=== PATIENT | female | born 1945 | race Asian ===

== ENCOUNTER 2022-11-02 10:55 | Emergency (ER) | payer MEDICARE ==
[~2022-11-02] VITALS: Ht 142.2 cm; Wt 50.0 kg
[~2022-11-02 10:55] MED LIST: AMLO10TA PO; ASPI-1265 PO; ATOR20TA66 PO; CALC200T PO; LISI40TA13 PO; MULT-1085 PO; OMEG-79 PO
[2022-11-02 11:39] LABS: CLARITY,URINE CLEAR (Clear); COLOR,URINE YELLOW (Yellow); GLUCOSE, URINE NEGATIVE (Neg); KETONES,URINE NEGATIVE (Neg); LEUKOCYTE ESTERASE ,URINE TRACE (Neg); NITRITES, URINE NEGATIVE (Neg); OCCULT BLOOD,URINE SMALL (Neg); PH,URINE 5.5 (4.8-8.0); PROTEIN,URINE NEGATIVE (Neg); UROBILINOGEN,URINE 0.2 E.U/dL (0.2-1.0)
[2022-11-02 11:41] LABS: UA COLLECTION TYPE CLN CATCH MIDSTREAM
[2022-11-02 11:46] LABS: BACTERIA,URINE FEW /HPF (Neg); MUCUS STRANDS NONE SEEN /LPF (Neg); RBC,URINE 0-2 /HPF (0-2); SQUAMOUS EPITHELIAL CELL,UR NONE SEEN /LPF (FEW); TRANSITIONAL EPI CELLS,URINE FEW /HPF; WBC CLUMPS,URINE FEW /HPF (NEGATIVE)
[2022-11-02] MEDS ORDERED: AMOX-117 PO (12:07)
[2022-11-02] MEDS ORDERED: amox tr/potassium clavulanate 875/125mg TAB PO ONE (12:10)
== END 2022-11-02 12:31 | disposition home or self-care (01) ==
LOC: ER 10:55
DX: N10 Acute pyelonephritis (principal); I51.9 Heart disease, unspecified; Z91.013 Allergy to seafood; Z79.899 Other long term (current) drug therapy; Z79.1 Long term (current) use of non-steroidal anti-inflammatories (NSAID)
CPT/HCPCS: 81001; 87088; 99283

== ENCOUNTER 2025-03-05 13:17 | Emergency (ER) | payer MEDICARE ==
[~2025-03-05] VITALS: Ht 152.4 cm; Wt 49.1 kg
[2025-03-05 13:26] VITALS: BP 168/66; PULSE 69; TEMP 97.4; O2SAT 99
--- NOTE | 2025-03-05 14:30 | Physician Documentation ---
History of Present Illness ~ Chief Complaint: Headache Stated Complaint: HASNT SLEPT IN 3 DAYS Time Seen by MD: 14:53 OK to notify your PCP?: Yes Primary Medical Doctor: DR. DE LUNA Source: patient Mode of Arrival: POV Exam Limitations: no limitations HPI 79-year-old female presents with left-sided posterior headache that started 3 days ago that has migrated to the left temporal region and now down into her left jaw. She has a history of a stroke about 10 years ago and she does take 81 mg aspirin daily. She describes this headache as the worst headache of her life. And she tried taking Tylenol home with no relief, and has been unable to sleep due to the pain. She has a history of hypertension which has been well controlled with medication and her blood pressure at home was 159/80. No falls or known trauma. No history of migraines or chronic headaches. Medication Reconciliation Allergies: Coded Allergies: shellfish derived (Verified Allergy, Unknown, 06/04/18) Scheduled Amlodipine Besylate (Amlodipine Besylate), 1 TABLET PO HS, (Reported) Aspirin (Aspirin), 1 TAB PO DAILY, (Reported) Atorvastatin Calcium (Atorvastatin Calcium), 20 MG PO DAILY Calcium Citrate (Calcium Citrate), 1 TAB PO DAILY, (Reported) Lisinopril* (Lisinopril*), 1 TAB PO DAILY, (Reported) Multivitamin (Multi Vitamin Daily), 1 TAB PO DAILY, (Reported) Hardwick-3 Fatty Acids/Fish Oil (Fish Oil 1,000 Mg Softgel), 1 CAP PO DAILY, (Reported) Past Medical History Past Medical History: CVA/TIA/Stroke Past Surgical History: no surgical history Drug Use: none Lives with: Family Lives In: Home Occupation: retired Review of Systems All Other Systems at this time: Reviewed and Negative Physical Exam Vital Signs: RN Vital Signs have been reviewed: Yes, Temperature: 97.4, Source: Temporal, Heart Rate: 69, Respiratory Rate: 16, BP: 168/66, Pulse Oximetry: 99, Weight: 49.090 Oxygen Flow Rate: 0 Pulse Oximetry Reflects: adequate oxygenation Physical Exam General: Alert, mild distress. HEENT: No injection, moist mucous membranes. PERRLA, EOMI. Head/Neck: Full range of motion. Tenderness to palpation of posterior and temporal left scalp. No cervical lymphadenopathy. Respiratory: No respiratory distress, equal chest rise and fall. Chest: No accessory muscle use. Cardiovascular: Regular rate and rhythm. Gastrointestinal: Nondistended. Extremities: Normal range of motion, no deformity. Neurologic: Oriented x4. Psychiatric: Normal mood and affect. Skin: Normal color, warm and dry. Progress Results/Orders Reviewed/noted all lab results: Yes Results/Orders Orders - LILLIANA ART [employer] Ct Head (03/05/25 14:29) Completed Orders - LILLIANA ART [employer] Ct Head (03/05/25 14:29) Diphenhydramine Inj (Benadryl Inj.) (03/05/25 16:05) Normal Saline 1000ml (Sodium Chloride 10 (03/05/25 16:05) Ketorolac Trometh 15mg/Ml Vial (Toradol (03/05/25 16:05) Prochlorperazine Inj (Compazine Inj) (03/05/25 16:05) Medications Received in ER Medications (Trade) Dose Ordered Sig/Kristina Route PRN Reason Start Time Stop Time Status Last Admin Dose Admin (Benadryl inj.) 25 mg ONCE ONCE IV 03/05/25 16:05 03/05/25 16:08 DC 03/05/25 16:33 25 MG (sodium chloride 1000ml IV soln) 1,000 ml ONCE ONCE IVB 03/05/25 16:05 03/05/25 16:09 DC 03/05/25 16:14 1,000 ML (Toradol injection) 15 mg ONCE ONCE IV 03/05/25 16:05 03/05/25 16:09 DC 03/05/25 16:33 15 MG (Compazine inj) 10 mg ONCE ONCE IV 03/05/25 16:05 03/05/25 16:08 DC 03/05/25 16:33 10 MG Vital Signs 03/05/25 03/05/25 13:26 16:33 Temp 97.4 Pulse 69 Resp 16 16 B/P (MAP) 168/66 Pulse Ox 99 O2 Flow Rate 0 EKG/XRAY/CT/US/VASC/MRI CT : Impression Head CT scan as interpreted by me; no acute hemorrhage, no tissue swelling or midline shift. Medical Decision Making Findings 71-year-old female presents with posterior left head pain which started 3 days ago and has traveled into her temporal region and now down into her eye and left jaw. She reports that it is the worst headache of her life and she has not been able to sleep with it. She has tried [id number] medications with no relief. She has no history of migraines. Due to the description of her headache and her history of having a stroke 10 years ago we will do a head CT to rule out any hemorrhage even though there was no known trauma. The head CT came back and was showing no acute changes. I discussed this case with MALLY Wells, and she recommended trying a migraine cocktail which was ordered. This patient is at risk for having temporal arteritis due to her age and gender however the pain did not start in the temporal region initially. On exam her scalp is tender to palpation of the temporal and posterior left side as well as into her jaw. She has no trismus and no cervical lymphadenopathy. On reassessment, she reports that her headache has resolved he is feeling much better. She is still having some pain in her jaw. She he is currently wearing dentures and there have been no changes to the fit of her dentures. She was last seen at the dentist a month ago with no issues. Does not have any pain when chewing or biting down she just now has an aching sensation in her upper jaw but the pain around her temporal region posterior head and around the eye has all resolved. We discussed that her CT was negative for a bleed which is what she was worried about the most. We discussed that if she has any further symptoms to be seen immediately and she should follow up with her primary care provider in the next 3 days. Differential Dx:Considerations: Include: PARKER-Hypertensive, Close head injuyr, CVA, Hemorrhage-Epidural, Hemorrhage-Intracerebral, Hemorrhage-Subarachnoid, Hemorrhage-Subdural, Mass lesion, Meningitis, Temporal arteritis, Trigeminal neuralgia Departure Disposition: 01 HOME / SELF CARE / HOMELESS Impression: Primary Impression: Headache Condition: Stable Discharge Instructions: Headache Additional Instructions: Please follow up with her primary care provider in the next 3 days and return back here for any new or worsening symptoms. Referrals: NO PRIMARY CARE PROVIDER (PCP) Education Educated: Patient Educated regarding: diagnosis, treatment, prognosis, need for follow up Additional Comment Medical Screen Exam This patient recieved a medical screening examination. After reviewing the individual's medical complaints with presenting symptoms and performing an appropriate physical examination, it was determined that no immediate life- threatening emergency medical condition is present. This individual is also not a women having contractions. Signature Scribe Signature: . Attestation: Scribed for Lilliana Art by Lilliana England NP . 03/05/25 17:26 LILLIANA ART Mar 05, 2025 14:30
--- NOTE | 2025-03-05 14:59 | RADIOLOGY REPORT ---
Exam: CT CT HEAD History: Left side "worst headache of her life" x 3 days Technique: [address] images through the posterior fossa and the supratentorial compart ment were acquired without contrast and imaged using soft tissue and bone algorithms. RADIATION DOSE: DLP 813.35 mGy.cm; CTDI vol 48.19 mGy. Comparison: MRI HEAD on DOS: 11/11/21, CT HEAD on DOS: 11/10/21 Findings: There is no evidence of an intracranial hemorrhage, acute large vessel infarct, mass effect, or midli ne shift. There is mild cerebral atrophy. Chronic small vessel ischemic disease. Moderate calcification of the carotid siphons. The calvarium, orbits, paranasal sinuses, sella, middle ears, and mastoids are unremarkable. The superficial soft tissues are within normal limits. Impression: 1. No acute intracranial abnormality.
[2025-03-05] MEDS: normal saline 1000ML IV soln IVB ONE (16:14)
[2025-03-05 16:33] VITALS: RESP 16
[2025-03-05] MEDS: proCHLORperazine 10 MG/2 ml inj IV ONE (16:33)
[2025-03-05] MEDS: ketorolac trometh 15mg/ml vial 15 MG/ML ML IV ONE (16:33)
[2025-03-05] MEDS: diphenhydrAMINE 50 mg/ml inj IV ONE (16:33)
== END 2025-03-05 17:50 | disposition home or self-care (01) ==
LOC: ER 13:18
DX: R51.9 Headache, unspecified (principal); I10 Essential (primary) hypertension; Z86.73 Personal history of transient ischemic attack (TIA), and cerebral infarction without residual deficits; Z88.8 Allergy status to other drugs, medicaments and biological substances
CPT/HCPCS: 70450; 96361; 96374; 96375; 99285; J0780; J1200; J1885; J7030